=== PATIENT | female | born 1965 | race African-American/Black ===

== ENCOUNTER 2020-03-29 11:22 | Emergency (ER) | payer OTHER, SELFPAY ==
--- NOTE | ~2020-03-29 | XR_ITS ---
EXAMINATION: XR chest 2V DATE: 03/29/2020 12:28 INDICATION: COVID positive. Cough. TECHNIQUE: PA and lateral views of the chest were obtained. COMPARISON: Chest radiograph dated 06/16/2013 FINDINGS: Subtle opacities at the lingula. No pulmonary edema, pleural effusion or pneumothorax. The cardiomedi astinal silhouette is normal. Visualized bones and soft tissues are unremarkable. IMPRESSION: 1. Subtle lingular opacities which could represent atelectasis or pneumonia. Reviewed, dictated and finalized at location A. NSIVIST
[2020-03-29 11:42] VITALS: BP 101/72; PULSE 88; RESP 16; TEMP 36.6; O2SAT 99
--- NOTE | 2020-03-29 12:12 | ED.GENADULT ---
HPI - General Adult General Chief complaint: Upper Respiratory Infection Stated complaint: headache/sinus drainage/chest congestion Source: patient Mode of arrival: ambulatory Limitations: no limitations History of Present Illness HPI narrative: Patient presents for evaluation of respiratory symptoms for the last 2 to 3 weeks. She reports productive cough of clear sputum with mild shortness of breath, sinus congestion, headache, bilateral ear congestion, chills, mild sore throat, and overall not feeling well . She currently resides with her daughter. Her daughter has not been sick as of late. No other recent sick contacts to her knowledge. She does not smoke. She has tried Mucinex DM, Sinutabs, Vicks VapoRub, ibuprofen, some type of nasal spray without significant improvement in her symptoms or after. Related Data Home Medications Medication Instructions Recorded Confirmed brimonidine-timolol [Combigan] drp 03/29/20 dorzolamide drp 03/29/20 Allergies Allergy/AdvReac Type Severity Reaction Status Date / Time No Known Allergies Allergy Verified 03/29/20 11:27 Review of Systems Review of Systems: Narrative: CONSTITUTIONAL: Reports chills. Denies fever or sweating EYES: Denies visual changes, redness, or discharge. ENT: Reports rhinorrhea, sore throat, bilateral ear congestion CARDIOVASCULAR: Denies chest pain, palpitations, or edema. RESPIRATORY: Reports cough and mild shortness of breath GASTROINTESTINAL: Denies abdominal pain. Reports one episode of nausea and vomiting last week but none since that time GENITOURINARY: Denies dysuria or hematuria. SKIN: Denies rash or itching. MUSCULOSKELETAL: Denies back pain, joint pain, or myalgia. NEUROLOGIC: Reports headache. Denies numbness, dizziness, or weakness. PSYCHIATRIC: Denies anxiety or depression. [facility] Past Medical History Medical History (Updated 03/29/20 @ 12:52 by KELBY Daly, NOEMÍ) No significant past medical history Surgical History Surgical History No pertinent past surgical history Family History Family History Mother No significant past medical history Social History Social History (Updated 03/29/20 @ 12:21 by Jarrett L.E. Dahlia, VAMP STRAP IRONER, BC) Smoking status: Never smoker Alcohol intake: current Alcohol use details: Socially Substance use: never Living arrangements: with family Gender identity (if verbalized by the patient): Female Spiritual care concerns: No Exam Narrative: Exam Narrative: GENERAL: Well-appearing, well-nourished, and in no acute distress. HEAD: Normocephalic, atraumatic. EYES: PERRLA and EOMI. ENT: Nares clear, no rhinorrhea or epistaxis. Mucous membranes moist. Oropharynx without tonsillar hypertrophy exudate or other lesions. Left TM pearly nolasco nonbulging. Right ear canal cerumen NECK: Supple. No adenopathy or masses. No carotid bruits or JVD CHEST: Clear to auscultation. No respiratory distress. No wheezes rales or rhonchi HEART: Regular rate and rhythm. No murmur heard. Normal peripheral pulses. ABDOMEN: Soft, nontender, nondistended, normal active bowel sounds. EXTREMITIES: Normal range of motion. No edema. SKIN: Warm, dry, no rash. NEURO: No focal deficits. Alert and oriented x3. PSYCH: Normal mood and affect. Course Course Emergency Course: 55-year-old female that presents with several week history of respiratory symptoms. She does strep, influenza which were both negative. Her Covid was positive. Chest x-ray showed atelectasis versus pneumonia. While this very well could be a viral pneumonia, she may have a superimposed bacterial infection so we will treat her with oral antibiotics. She was advised to quarantine, rest, increase fluid intake. She should seek emergent medical attention for shortness of breath. Saturations were normal here. Patient agreement wi
== END 2020-03-29 13:05 | disposition home or self-care (01) ==
PROVIDERS: Emergency Provider Nurse Practitioner; PCP Emergency Medicine
DX: J12.82 Pneumonia due to coronavirus disease 2019 (principal); B94.8 Sequelae of other specified infectious and parasitic diseases
CPT/HCPCS: 71046; 87081; 87426; 87804; 87880; 99213; C9803; G0463

== ENCOUNTER 2020-04-09 11:07 | Emergency (ER) | payer OTHER, SELFPAY ==
[2020-04-09] VITALS (14 sets, daily range): BP systolic 125–137; BP diastolic 66–105; PULSE 55–78; RESP 12–21; TEMP 36.8; O2SAT 98–100
--- NOTE | ~2020-04-09 | CT_ITS ---
EXAMINATION: CTA chest PE protocol DATE: 04/09/2020 12:36 INDICATION: Shortness of breath. TECHNIQUE: Computed tomography angiography (CTA) of the chest was performed with 100 mL Omnipaque-350 intravenous contrast timed to evaluate the pulmonary arteries. Coronal maximum intensity projection 3D-reconstructions were created by the technologist. Automated exposure control and iterative reconst ruction technique were employed. The dose-length product was 354.45 mGy-cm. COMPARISON: Chest single view 04/09/2020 FINDINGS: There are patchy peripheral groundglass and airspace opacities in all lobes, left worse jacques n right. No pleural effusion. The heart size is normal. No pericardial effusion. There is mild bilate ral hilar lymphadenopathy. There is no pulmonary embolus. There is mild thoracic spondylosis. IMPRESSION: 1. No pulmonary embolus. 2. Diffuse lung disease, consistent with COVID-19 pneumonia. 9 3. Mild bilateral hilar lymphadenopathy, likely reactive. Reviewed, dictated and finalized at location A. BOSS
--- NOTE | ~2020-04-09 | XR_ITS ---
EXAMINATION: XR chest 1V portable DATE: 04/09/2020 11:49 INDICATION: Chest pain. Nausea. TECHNIQUE: A single frontal view of the chest was obtained. COMPARISON: Chest 2 views 03/29/2020 FINDINGS: There are mild patchy airspace opacities in left lung and right lower lung zone. No pleural effusion or pneumothorax. The heart size is normal. IMPRESSION: 1. Worsened patchy airspace opacities in left lung and right lower lung zone, consistent with COVID-1 9 pneumonia. Reviewed, dictated and finalized at location A. SPINNER IMPRESSION: 1. Worsened patchy airspace opacities in left lung and right lower lung zone, c onsistent with COVID-19 pneumonia.
--- NOTE | 2020-04-09 11:17 | ECG_ITS ---
Measurements Intervals [place] Rate: 64 P: 76 WI: 135 QRS: 6 QRSD: 88 T: -89 QT: 378 QTc: 390 Interpretive Statements SINUS RHYTHM WITH SINUS ARRHYTHMIA POSSIBLE LEFT ATRIAL ENLARGEMENT LOW QRS VOLTAGE IN PRECORDIAL LEADS NONSPECIFIC ST & T-WAVE ABNORMALITY- DIFFUSE LEADS BASELINE ARTIFACT- I, III, AVR, AVL, AVF, V1-V6 BORDERLINE ECG Electronically Signed On 04-09-2020 11:34:17 LAY OUT CARPENTER by Kali Chan D.O.
--- NOTE | 2020-04-09 11:27 | ED.CHESTPAIN ---
HPI - Chest Pain General Chief Complaint: Chest Pain Stated Complaint: covid/cp Time Seen by Provider: 04/09/20 11:20 Source: patient Mode of arrival: ambulatory Limitations: no limitations History of Present Illness HPI narrative: Patient is a 55-year-old female complaining of chest tightness, after taking antibiotics which caused her to have nausea vomiting earlier today. Patient states that she started to have nausea and vomiting after taking the antibiotic she has been on for the past 2 weeks, started to feel anxious causing the chest tightness. Patient states that she usually takes food with her antibiotics because it makes her sick. After the nausea vomiting subsided, states that she started to calm down and her chest tightness resolved. Patient denies any chest pain, shortness of breath, abdominal pain, diarrhea, fever or chills. Related Data Home Medications Medication Instructions Recorded Confirmed brimonidine-timolol [Combigan] 1 drp EACH EYE BID 03/29/20 03/29/20 dorzolamide 1 drp EACH EYE TID 03/29/20 03/29/20 Allergies Allergy/AdvReac Type Severity Reaction Status Date / Time No Known Allergies Allergy Verified 04/09/20 11:34 Review of Systems Review of Systems: All systems reviewed & are unremarkable except as noted in HPI and below Constitutional: Constitutional: Denies body ache(s), Denies chills, Denies excessive sweating, Denies fatigue, Denies fever(s), Denies headache(s), Denies lethargy, Denies malaise, Denies weakness and Denies weight loss Eyes: Eyes: Denies blurry vision, Denies change in vision and Denies loss of vision ENT: Denies dizziness, Denies ear discharge, Denies headache(s), Denies lip swelling, Denies epistaxis, Denies nasal congestion, Denies neck pain, Denies throat swelling and Denies tongue swelling Cardiovascular: Cardiovascular: Denies diaphoresis, Denies rapid heart rate, Denies edema, Denies irregular heart rhythm, Denies lightheadedness, Denies palpitations, Denies dyspnea and Denies dyspnea on exertion Respiratory: Respiratory: Denies chest congestion, Denies cough, Denies hemoptysis, Denies dyspnea and Denies dyspnea on exertion Gastrointestinal: Gastrointestinal: Denies abdominal pain, Denies melena, Denies hematochezia, Denies diarrhea and Denies hematemesis Musculoskeletal: Musculoskeletal: Denies abnormal gait, Denies deformity, Denies joint swelling, Denies limited range of motion, Denies neck pain and Denies numbness Neurologic: Denies Abnormal speech present, Denies abnormal gait, Denies confusion, Denies dizziness, Denies headache(s), Denies focal weakness, Denies loss of vision, Denies numbness, Denies Other visual disturbances, Denies Sensory deficit (Neuro) and Denies weakness Psychiatric: Psychiatric: Denies confusion, Denies depression, Denies auditory hallucinations, Denies homicidal ideation and Denies suicidal ideation Endocrine: Endocrine: Denies cold intolerance, Denies excessive sweating, Denies fatigue, Denies heat intolerance and Denies palpitations Hematologic/Lymphatic: Hematologic/Lymphatic: Denies easy bleeding and Denies easy bruising Allergic/Immunologic: Allergic/Immunologic: Denies lip swelling, Denies throat swelling and Denies tongue swelling PMFSH Past Medical History Medical History No significant past medical history Surgical History Surgical History No pertinent past surgical history Family History Family History Mother No significant past medical history Social History Social History Smoking status: Never smoker Alcohol intake: current Substance use: never Gender identity (if verbalized by the patient): Female Spiritual care concerns: No Exam Const: General: cooperative, healthy appearing, comfo
[2020-04-09 11:48] LABS: Basophils Percent Auto 0.3 % (0.2-1.2); Eosinophils Absolute Auto 0.1 K/mm3 (0-0.3); Eosinophils Percent Auto 1.2 % (0-4.4); Hematocrit 43.5 % (37.0-47.0); Hemoglobin 14.9 g/dL (12.0-15.0); Immature Granulocyte Absolute 0.08 K/mm3 (0.00-0.031); Immature Granulocyte Percent A 0.8 % (0-0.5); Lymphocytes Absolute Auto 1.72 K/mm3 (0.9-3.2); Lymphocytes Percent Auto 16.8 % (18.3-44.2); Mean Corpuscular HGB Conc 34.3 g/dl (32-36); Mean Corpuscular Hemoglobin 32.5 pg (26-34); Mean Corpuscular Volume 94.8 fl (80-100); Mean Platelet Volume 10.5 fl (7.4-10.4); Monocytes Absolute Auto 0.9 K/mm3 (0.1-0.6); Monocytes Percent Auto 8.3 % (2.6-8.5); Neutrophils Absolute Auto 7.5 K/mm3 (1.3-6.7); Neutrophils Percent Auto 72.6 % (45.5-73.1); Platelet Count Result 432 k/mm3 (150-375); Red Blood Count 4.59 M/mm3 (4.2-5.4); White Blood Count 10.3 K/mm3 (4.5-10.0)
[2020-04-09 11:57] LABS: INR 0.9; Prothrombin Time 12.5 Seconds (11.1-14.7)
[2020-04-09 11:58] LABS: Partial Thromboplastin Time 23.5 SECONDS (22.3-36.8)
[2020-04-09 12:00] LABS: Anion Gap 6 mmol/L (8-16); Blood Urea Nitrogen 11 mg/dL (7-17); Calcium 8.7 mg/dL (8.4-10.2); Carbon Dioxide 28 mmol/L (22-30); Chloride 111 mmol/L (98-107); D Dimer 1.05 ug/mL (<0.48); Estimated CRCL calculation 80 ml/min; Estimated Glomerular Filt Rate > 60; Glucose 107 mg/dL (65-105); Potassium 3.6 mmol/L (3.4-5.0); Sodium 145 mmol/L (137-145)
[2020-04-09 12:11] LABS: Troponin I < 0.012 ng/mL (0.000-0.034)
[2020-04-09 14:43] LABS: Troponin I < 0.012 ng/mL (0.000-0.034)
== END 2020-04-09 15:20 | disposition home or self-care (01) ==
PROVIDERS: Emergency Medicine; Emergency Provider Emergency Medicine; PCP Emergency Medicine
DX: U07.1 COVID-19 (principal); R07.89 Other chest pain; R94.31 Abnormal electrocardiogram [ECG] [EKG]; R91.8 Other nonspecific abnormal finding of lung field
CPT/HCPCS: 36415; 71045; 71275; 80048; 84484; 85025; 85380; 85610; 85730; 93005; 99284; Q9967

== ENCOUNTER → 2020-04-30 08:13 | Outpatient (CLI) | payer OTHER, SELFPAY ==
--- NOTE | ~2020-04-30 | XR_ITS ---
EXAMINATION: XR chest 2V EXAM DATE: 04/30/2020 08:39 INDICATION: J12.9 Viral Pneumonia; COVID pos late 02/2020 . TECHNIQUE: Frontal and lateral projections of the chest obtained and reviewed. Comparison is made to prior examination from 04/09/2020. FINDINGS: The lungs are clear. There are no pleural effusions. The cardiomediastinal silhouette is within normal limits. There is no pneumothorax suspected. The bones and soft tissues are unremarkab le. IMPRESSION: Resolution of previously seen acute airspace disease. Reviewed, dictated and finalized at location A. ST WORKER
== END ==
PROVIDERS: PCP Emergency Medicine; Visit Provider Emergency Medicine
DX: J12.9 Viral pneumonia, unspecified (principal)
CPT/HCPCS: 71046

== ENCOUNTER 2020-05-12 08:01 | Outpatient (CLI) | payer OTHER, SELFPAY ==
--- NOTE | ~2020-05-12 | MM_ITS ---
EXAMINATION: MM screening [facility] BI w sendy HISTORY: Screening TECHNIQUE: Craniocaudal and mediolateral oblique 3-D tomosynthesis images were obtained and synthetic 2-D images were generated. CAD analysis was submitted and interpreted. COMPARISON: Comparison to multiple prior studies sequentially, with oldest reviewed study dated 01/28. BREAST PARENCHYMAL COMPOSITION: There are scattered areas of fibroglandular density. FINDINGS: There is no evidence of suspicious mass, calcification, or architectural distortion to sugg est malignancy in either breast. There has been no suspicious interval change. IMPRESSION: 1. No mammographic evidence of malignancy. 2. Recommend routine screening mammography in one year. BI-RADS Category 1: Negative Reviewed, dictated and finalized at location A.
== END 2020-05-12 08:02 | disposition home or self-care (01) ==
LOC: ANHIMG 08:03
PROVIDERS: PCP Emergency Medicine; Visit Provider Obstetrics & Gynecology
DX: Z12.31 Encounter for screening mammogram for malignant neoplasm of breast (principal)
CPT/HCPCS: 77063; 77067

== ENCOUNTER → 2021-07-23 18:36 | Outpatient (CLI) | payer OTHER, SELFPAY ==
--- NOTE | ~2021-07-23 | XR_ITS ---
EXAMINATION: XR chest 2V 07/23/2021 18:46 INDICATION: Cough PROCEDURE: 2 view chest COMPARISON: Comparison to multiple prior studies sequentially, with oldest reviewed study dated 06/16. FINDINGS: The lungs are clear. The cardiomediastinal silhouette is within normal limits. There are no pleural effusions. There is no pneumothorax suspected. IMPRESSION: 1: NO ACUTE CARDIOPULMONARY DISEASE. Reviewed, dictated and finalized at location A.
== END ==
PROVIDERS: PCP Internal Medicine; Visit Provider Internal Medicine
DX: R05.9 Cough, unspecified (principal)
CPT/HCPCS: 71046

== ENCOUNTER 2021-08-16 07:34 | Outpatient (CLI) | payer OTHER, SELFPAY ==
--- NOTE | ~2021-08-16 | MM_ITS ---
EXAMINATION: MM screening [facility] BI w sendy HISTORY: Screening mammogram TECHNIQUE: Craniocaudal and mediolateral oblique 3-D tomosynthesis images were obtained and synthetic 2-D images were generated. CAD analysis was submitted and interpreted. COMPARISON: 05/12/2020, 03/20/2018, 03/14/2017 bilateral screening mammogram examinations BREAST PARENCHYMAL COMPOSITION: There are scattered areas of fibroglandular density. FINDINGS: There is no evidence of suspicious mass, calcification, or architectural distortion to sugg est malignancy in either breast. There has been no suspicious interval change. IMPRESSION: 1. No mammographic evidence of malignancy. 2. Recommend routine screening mammography in one year. BI-RADS Category 1: Negative Reviewed, dictated and finalized at location A.
--- NOTE | ~2021-08-16 | DEXA_ITS ---
Bone Density Report Name: MANAV WALTERS Age: 56 Sex: Female Ethnicity: White Date of : 1965 Indication: osteopenia; height loss; post menopausal Referring Provider: MIGUEL MEDINA Study: Bone densitometry was performed. Exam Date: August 16, 2021 Accession number: [id number] Bone Density: Region BMD T-score Z-score Classification AP Spine(L1-L4) 0.846 -1.8 -0.7 Osteopenia Femoral Neck (Left) 0.717 -1.2 -0.1 Osteopenia Total Hip (Left) 0.750 -1.6 -0.8 Osteopenia Femoral Neck (Right) 0.725 -1.1 0.0 Osteopenia Total Hip (Right) 0.757 -1.5 -0.8 Osteopenia Total Hip Mean 0.753 -1.6 -0.8 Osteopenia World Health Organization criteria for BMD impression classify patients as: Normal (T-score at or above -1.0), Osteopenia (T-score between -1.0 and -2.5), or Osteoporosis (T-score at or below -2.5). 10-year Fracture Risk(1): Major Osteoporotic Fracture 2.8% Hip Fracture 0.2% Reported Risk Factors: [place] (Black), Neck BMD=0.717, BMI=28.2 (1) FRAX(R) Version 3.08. Fracture probability calculated for an untreated patient. Fracture probability may be lower if the patient has received treatment. Previous Exams: Region Exam Age BMD T-score BMD Change BMD Change Date g/cm2 vs Baseline vs Previous AP Spine (L1-L4) 08/16/2021 56 0.846 -1.8 -0.039 (-4.4%) -0.039 (-4.4%) 03/10/2016 51 0.885 -1.5 Total Hip(Left) 08/16/2021 56 0.750 -1.6 -0.040 (-5.0%) -0.040 (-5.0%) 03/10/2016 51 0.789 -1.3 Total Hip(Right) 08/16/2021 56 0.757 -1.5 -0.031 (-4.0%) -0.031 (-4.0%) 03/10/2016 51 0.788 -1.3 *Denotes significance at 95% confidence level, LSC for AP Spine = 0.022 g/cm2, LSC for Total Hip = 0.027 g/cm2 Clinical Information Provided by Patient: Patient maximum height was 68 Menopause Age: 49 Drinks caffeinated beverages Onset of menses at age 16 Number of children 1 Impression: The patient has low bone mass, based on the Total Spine T-score. The patient has an estimated ten-year risk of hip fracture of 0.2% and an estimated ten-year risk of major fracture of 2.8%, based on the WHO FRAX algorithm. The BMD for the AP Spine (L1-L4) decreased, changing by -4.4% since the last DXA exam. The BMD for the Total Hip(Left) decreased, changing by -5.0% since the last DXA exam. The BMD for the Total Hip(Right) decreased, changing by -4.0% since the last DXA exam. Discussion: BONE DENSITY IS LOW AT ONE OR MORE SKELETAL SITE
== END 2021-08-16 07:35 | disposition home or self-care (01) ==
PROVIDERS: PCP Internal Medicine; Visit Provider Obstetrics & Gynecology
DX: Z12.31 Encounter for screening mammogram for malignant neoplasm of breast (principal); Z13.820 Encounter for screening for osteoporosis; M85.88 Other specified disorders of bone density and structure, other site; M85.852 Other specified disorders of bone density and structure, left thigh; M85.851 Other specified disorders of bone density and structure, right thigh
CPT/HCPCS: 77063; 77067; 77080

== ENCOUNTER 2023-05-15 14:35 | Outpatient (CLI) | payer OTHER, SELFPAY ==
--- NOTE | ~2023-05-15 | MM_ITS ---
EXAMINATION: MM screening [facility] BI w sendy HISTORY: Screening TECHNIQUE: Craniocaudal and mediolateral oblique 3-D tomosynthesis images were obtained and synthetic 2-D images were generated. CAD analysis was submitted and interpreted. COMPARISON: Comparison to multiple prior studies sequentially, with oldest reviewed study dated 01/28. BREAST PARENCHYMAL COMPOSITION: Not dense: There are scattered areas of fibroglandular density. FINDINGS: There is no evidence of suspicious mass, calcification, or architectural distortion to sugg est malignancy in either breast. There has been no suspicious interval change. IMPRESSION: 1. No mammographic evidence of malignancy. 2. Recommend routine screening mammography in one year. BI-RADS Category 1: Negative Reviewed, dictated and finalized at location A.
== END 2023-05-15 14:36 | disposition home or self-care (01) ==
LOC: ANHIMG 14:38
PROVIDERS: PCP Internal Medicine; Visit Provider Nurse Practitioner
DX: Z12.31 Encounter for screening mammogram for malignant neoplasm of breast (principal)
CPT/HCPCS: 77063; 77067

== ENCOUNTER 2023-12-08 13:30 | Outpatient (RCR) | payer OTHER, SELFPAY ==
--- NOTE | 2023-11-30 14:48 | STOPEVAL1 ---
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 She reports that her employment involves speaking all day and this has made it difficult for her to return to work. She has been placed on blood thinners and cholesterol medicine and may be facing a surgical procedures. Patient stated that she still mispronounces words at times but improving; when asked about thinking of words, she knows that this has improved. She stated that initially, she could not even remember her work computer user name and password and her co-workers called an ambulance and sent her to the hospital. Patient denies weakness in rest of body. Reported Pain Level Pain Score 0: Self Report Assessment ST Clinical Summary SPEECH/LANGUAGE EVALUATION Patient suffered a CVA on 11/25 which caused her to have difficulty with her word-finding and speech skills. She reported that initially, she had great difficulty saying words clearly; some dysfluencies noted at the conversational level. 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 ) Today portions of the [facility] Aphasia Evaluation were presented and patient was found to have receptive skills within normal limit. Expressively, the patient was able to imitate words with exact speech sound precision however when patient spoke at the conversational level she was found to have intermittent, random speech sound hesitations and distortions which she states are new following this CVA. Patient reported she never demonstrated these speech issues prior to thie CVA, that her speech was always precise and fluent. Patient will be seen for direct Speech Therapy sessions 1-2 times weekly for 2-4 weeks for a total of four visits, depending on when she is able to have transportation. Speech Therapy will focus on higher-level conversational tasks to address strategies to improve speech fluency/sound productions at the conversational level. Patient voices understanding and is in agreement with results and plan. Plan of Care Interventions Treatment of Speech ST Services Indicated Yes Treatment Frequency and 1-2x/week x 4 visits. Duration These treatments will address the objective and functional deficits as defined above. The patient will be advanced safely and appropriately in order for the patient to progress towards his/her prior level of function. Additional exercises will be introduced and as well as a comprehensive home exercise program upon discharge, if needed, ?to ensure carryover of functional gains achieved in the clinic. This treatment plan has been reviewed and agreement upon by the patient.
--- NOTE | 2023-12-04 09:27 | OPREHPOC ---
Outpatient Therapy Plan of Care This is a Multidisciplinary Plan of Care that may contain components documented by all disciplines (PT, OT, and ST.) ST Problem 1 ST Problem #[address] Goal 1 Goal / Goal Update 1. Patient will voice and demonstrate anatomy and physiology related to communication impairment, treatment plan, home exercise program, compensatory programs, and risks and benefits related to direct Speech Therapy tasks. Target Visit [address] Problem #[address] Goal [address] Goal 1 Goal / Goal Update 1. Patient will participate in structured tasks at the conversational level using strategies to improve speech sound precision/fluency to 90% acc. Target Visit 4
--- NOTE | 2024-01-04 13:39 | PCSTNOTE ---
Therapist spoke with patient concerning her medical status and need for any continued Speech Therapy. Patient reported she feels her speech and language are improving and she is slowly easing herself back into work. She stated she does not feel she requires any additional Speech Therapy.
--- NOTE | 2024-01-04 13:52 | STOPDC ---
Assessment and note entered by Kierra Jackson REHAB OFFICE COORDINATOR Evaluation Information Assessment Status Discharge - Pt Not Presen Assessment ST Clinical Summary Patient was seen for an initial Speech and Language Evaluation after suffering a CVA. She exhibited good conversational skills in general but indicated that sometimes initially, she had great difficulty saying words clearly; some dysfluencies noted at the conversational level. 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 Expressively, the patient was able to imitate words with exact speech sound precision however when patient spoke at the conversational level she was found to have intermittent, random speech sound hesitations and distortions which she states are new following this CVA. Patient reported she never demonstrated these speech issues prior to thie CVA, that her speech was always precise and fluent. Direct therapy was attempted, with recommendations for sessions 1-2 times weekly for 2-4 weeks for a total of four visits, depending on when she is able to have transportation. Patient was seen for only one additional visit and patient voiced that she felt her speech productions had improved. She requested the additional visits be held until after a CT scan and session with neurologist. She was contacted a week ago and did not respond but did respond when therapist called today. She stated she has seen her neurologist and had the CT scan; she reported they were essentially within normal limits and she feels her conversational speech has improved and she no longer requires any additional Speech Therapy at this time. Patient is discharged a this time with goals achieved. Plan of Care ST Services Indicated No
== END 2024-01-04 14:23 | disposition home or self-care (01) ==
LOC: ANHST 13:30
PROVIDERS: PCP Internal Medicine; Visit Provider Internal Medicine
DX: I69.328 Other speech and language deficits following cerebral infarction (principal)
CPT/HCPCS: 92507; 92523

== ENCOUNTER 2024-04-24 16:46 | Emergency (ER) | payer OTHER, SELFPAY ==
--- NOTE | ~2024-04-24 | XR_ITS ---
CHEST RADIOGRAPH, PA AND LATERAL CLINICAL HISTORY: COVID+, cough, chest congestion . COMPARISON: 07/23/2021 TECHNIQUE: PA and lateral views of the chest. FINDINGS The cardiomediastinal silhouette is unremarkable. The lungs are clear. Visualized osseous structures and soft tissues are unremarkable. IMPRESSION: No focal infiltrate or effusion. Reviewed, dictated and finalized at location A. DINGS AND GROUNDS SUPERINTENDENT
[2024-04-24 16:58] VITALS: BP 102/72; PULSE 112; RESP 16; TEMP 37.1; O2SAT 99
--- NOTE | 2024-04-24 17:03 | ED.URI ---
HPI - URI/Sore Throat General Chief Complaint: Upper Respiratory Infection Stated Complaint: CHEST CONGESTION/HEADACHE/SCRATCHY THROAT/SNEEZING Time Seen by Provider: 04/24/24 17:03 Source: patient and RN notes reviewed Mode of arrival: ambulatory Limitations: no limitations History of Present Illness HPI Narrative: 59 year old female presents with concern for cough, chest congestion, headache, sore throat, sneezing. She reports 3 days history of symptoms. She reports some chills. She denies fever. MD elicited complaint: cough and sore throat Related Data Home Medications ?Medication ?Instructions ?Recorded ?Confirmed ?Last Taken ?Type brimonidine 0.2 %-timolol 0.5 % 1 drp EACH EYE BID 03/29/20 03/29/20 Unknown History eye drops (Combigan) dorzolamide 2 % eye drops 1 drp EACH EYE TID 03/29/20 03/29/20 Unknown History Allergies Allergy/AdvReac Type Severity Reaction Status Date / Time No Known Allergies Allergy Verified 04/09/20 11:34 Review of Systems Review of Systems: CONSTITUTIONAL: Reports malaise, chills. Denies sweats, or fever. EYES: Denies visual changes, redness, or discharge. ENT: Reports rhinorrhea, congestion, and sore throat. CARDIOVASCULAR: Denies chest pain, palpitations, or edema. RESPIRATORY: Reports cough and chest congestion. Denies dyspnea. GASTROINTESTINAL: Denies abdominal pain, nausea, vomiting, diarrhea SKIN: Denies rash or itching. MUSCULOSKELETAL: Reports myalgia. NEUROLOGIC: Reports headache. All systems reviewed & are unremarkable except as noted in HPI and below PMFSH Past Medical History Medical History No significant past medical history Surgical History Surgical History No pertinent past surgical history Family History Family History Mother No significant past medical history Social History Social History Smoking status: Never smoker Alcohol intake: current Alcohol use details: Socially Substance use: never Living arrangements: with family Gender identity (if verbalized by the patient): Female Spiritual care concerns: No Comments At time of signature, agree with nursing past medical, surgical, social and family history. There is no relevant family history pertinent to the presenting complaint Exam Narrative: GENERAL: Well-appearing, well-nourished, and in no acute distress. HEAD: Normocephalic EYES: PERRLA, conjunctivae clear ENT: Nares clear. Mucous membranes moist. TM pearly nolasco with dull light reflex bilaterally; no tragal tenderness. Oropharynx not erythematous without lesions. Tonsils not enlarged and without exudate, no drooling, no hoarseness, no trismus, uvula midline. NECK: Supple. No lymphadenopathy CHEST: Clear to auscultation, breath sounds equal. No wheezing, rhonchi, rales, or stridor. No respiratory distress, speaks in full sentences. HEART: Regular rate and rhythm. No murmur heard. SKIN: Warm, dry, no rash. NEURO: Alert and oriented x3. PSYCH: Normal mood and affect Course Course Emergency Course: Patient is aware of diagnosis, understands and agrees to treatment plan. Anticipatory guidance given. Patient agrees to follow-up as directed and is aware of reasons to seek care at the emergency department. Portions of this record may have been created with voice recognition software Level of Care: Express Care Visit Vital Signs Vital signs: Vital Signs Temperature 98.8 F 04/24/24 16:58 Pulse Rate 112 H 04/24/24 16:58 Respiratory Rate 16 04/24/24 16:58 Blood Pressure 102/72 04/24/24 16:58 Pulse Oximetry 99 04/24/24 16:58 Temperature 98.8 F 04/24/24 16:58 Pulse Rate 112 H 04/24/24 16:58 Respiratory Rate 16 04/24/24 16:58 Blood Pressure 102/72 04/24/24 16:58 Pulse Oximetry 99 04/24/24 16:58 Reviewed. MDM - URI/Sore Throat MDM Narrative Medical decision making narrative: Differential diagnosis considered: Morgan virus, strep pharyngitis, allergic rhinitis, upper respiratory tract infection, sinusitis, rhinosinusitis, nasopharyngitis. viral pharyngitis, otitis media, otitis externa, pneumonia, bronchitis, viral cough syndrome, viral syndrome, and influenza. Exam findings show no acute concerns or changes; patient is non-toxic appearing and is in no distress. Patient is appropriate for outpatient treatment and follow-up. Lab Data Attestation: I reviewed the patient's lab results. Imaging Data My impression: Images reviewed, interpreted by radiologist, agree, see report. Radiologist's impression: CHEST RADIOGRAPH, PA AND LATERAL CLINICAL HISTORY: COVID+, cough, chest congestion . COMPARISON: 07/23/2021 TECHNIQUE: PA and lateral views of the chest. FINDINGS The cardiomediastinal silhouette is unremarkable. The lungs are clear. Visualized osseous structures and soft tissues are unremarkable. IMPRESSION: No focal infiltrate or effusion. Critical Care Time Critical Care Time Critical Care Time: No Discharge Plan Discharge Clinical Impression: Acute bronchitis due to COVID-19 virus Patient Disposition: Home, Self-Care Condition: Stable Instructions: How to Recover from COVID-19 at Home (ED) Additional Instructions: Your x-ray is normal Viral illness may last between 7-21 days; antibiotics do not cure viral illness and are NOT recommended at this time. Recommend antihistamine such as Benadryl at night time and Zyrtec or Janet during the day Cough syrup may cause drowsiness; avoid driving or take it at night time. Also, recommend symptomatic treatment includes: rest, fluids, and increase humidity of the air at home. Recommend Acetaminophen as directed on the bottle to reduce fever, pain, headache. Avoid smoking/second-hand smoke. Please schedule a follow-up visit with your personal physician for further evaluation and treatment within 3-5days. If your symptoms persist, change or worsen significantly before you can contact your personal physician then please, without delay, go to the emergency department for further evaluation. Patient Language: Slovenian Prescriptions: New promethazine-DM 6.25-15 mg/5 mL syrup 5 ml PO Q4-6H PRN (Reason: cough) Qty: 120 0RF methylprednisolone [Medrol (Aaron)] 4 mg tablets,dose pack See Rx Instructions .ROUTE .COMPLEX Qty: 21 0RF Rx Instructions: orally per package directions No Action dorzolamide 2 % drops 1 drp EACH EYE TID Combigan 0.2-0.5 % drops 1 drp EACH EYE BID azithromycin 250 mg tablet See Rx Instructions .ROUTE .COMPLEX Qty: 6 0RF Rx Instructions: take 500 mg today (day 1), then 250 mg for 4 days (days 2-5) doxycycline hyclate 100 mg capsule 100 mg PO DAILY Qty: 14 0RF Follow-up/Referrals: Rosa Guevara MD [Primary Care Provider] - Stand Alone Forms: Work/School Release IP Time of Disposition: 17:20
[2024-04-24 17:07] LABS: EDCOVIDSCREEN Positive (Negative); EDINFLUASCREEN Negative (Negative); EDINFLUBSCREEN Negative (Negative); EDSTREPNEGPOS1 Negative (Negative)
== END 2024-04-24 17:22 | disposition home or self-care (01) ==
PROVIDERS: Emergency Provider Nurse Practitioner; PCP Obstetrics & Gynecology Gynecology
DX: U07.1 COVID-19 (principal); J20.8 Acute bronchitis due to other specified organisms
CPT/HCPCS: 71046; 87081; 87426; 87804; 87880; 99213; G0463

== ENCOUNTER 2024-05-16 08:21 | Outpatient (CLI) | payer OTHER, SELFPAY ==
--- NOTE | ~2024-05-16 | MM_ITS ---
EXAMINATION: MM screening kelly BI w sendy HISTORY: Screening TECHNIQUE: Craniocaudal and mediolateral oblique 3-D tomosynthesis images were obtained and synthetic 2-D images were generated. CAD analysis was submitted and interpreted. COMPARISON: Comparison to multiple prior studies sequentially, with oldest reviewed study dated 03/10. BREAST PARENCHYMAL COMPOSITION: Not dense: There are scattered areas of fibroglandular density. FINDINGS: There is no evidence of suspicious mass, calcification, or architectural distortion to sugg est malignancy in either breast. There has been no suspicious interval change. IMPRESSION: 1. No mammographic evidence of malignancy. 2. Recommend routine screening mammography in one year. BI-RADS Category 1: Negative Reviewed, dictated and finalized at location []
--- OUTSIDE RECORDS SUMMARY | 2024-05-16 08:26 | XMS_ITS | Clinical Summary ---
Author Organization [facility] Address [address] [place] [address] Phone Care Team Providers Care Curtain Worker Name Role Phone Rosa Guevara MD Unavailable [phone] Porfirio Chiang Primary Care Provider [phone] Shaka Davalos DO Unavailable [phone] Allergies No known active allergies Medications polyethylene glycol (MIRALAX) Powder Use entire 255g bottle with 64oz of clear liquid as directed for colonoscopy prep. 255 g 0 6 Active Travoprost, DALI Free, (TRAVATAN Z) 0.004 % Solution Place 1 Drop in affected eye(s) nightly. Active Brimonidine Tartrate-Timolo l (COMBIGAN) 0.2-0.5 % Solution Place 1 Drop in affected eye(s) 2 times daily. Active dorzolamide (TRUSOPT) 2 % Solution Place 1 Drop in affected eye(s) 3 times daily. Active Norethindrone-E th Estradiol (JINTELI PO) Take 1 mg by mouth daily. 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 Gender Identity Not on file Sexual Orientation Not on file Plan of Treatment Health Maintenance Due Date Last Done Comments Hepatitis C Virus (HCV) Screening 1965 TdaP Immunization 1965 Hepatitis B Immunization (1 of 3 - 19+ 3-dose series) 02/26/1984 Pap Smear 1986 Cervical Cancer Screening (CCS) 1995 HPV/Cotest 1995 Cologuard 2015 Immunochemical Fecal Occult Blood 2015 Mammogram 2015 Pneumococcal Immunization (5 0+ years) (1 of 1 - PCV) 2015 Zoster Immunization (1 of 2) 2015 Influenza Immunization (#1) 2023 SARS-COV-2 Immunization ( season) 2023 10/12/2020, 09/21/2020 Colonoscopy 04/21/2026 04/21/2016 Colorectal Cancer Screening 04/21/2026 Respiratory Syncytial Virus (RSV) Immunization (Adult) (1 - 1-dose 75+ series) 02/26/2040 04/21/2016 Meningococcal Immunization (ACWY) Aged Out No longer eligible b ased on patient's age to complete this topic Pneumococcal Immunization Combined Aged Out No longer eligible b ased on patient's age to complete this topic Rotavirus Immunization Aged Out No lo nger eligible based on patient's age to complete this topic Procedures Procedure Name Priority Date/Time Associated Diagnosis Comments COLONOSCOPY Routine 04/21/2016 from Last 3 Months or Most Recently Relevant to Health Maintenance Results * COLONOSCOPY (04/21/2016) Albert Brambila MD PROCEDURE/MINOR SURGICAL OR DERABLES Final Result from Last 3 Months or Most Recently Relevant to Health Maintenance Care Teams Curtain Worker Relationship Specialty Start Date End Date Андрей Porfirio [address] [place] [address] PCP - General Family Medicine 01/19/16 Rosa Guevara MD [address] [place] [id number] Obstetrics & Gynecology 01/19/16 Shaka Davalos DO [address] [place] [address] Gastroenterology 04/27/16
== END 2024-05-16 08:22 | disposition home or self-care (01) ==
PROVIDERS: PCP Obstetrics & Gynecology Gynecology; Visit Provider Advanced Practice Midwife
DX: Z12.31 Encounter for screening mammogram for malignant neoplasm of breast (principal)
CPT/HCPCS: 77063; 77067

== ENCOUNTER 2024-12-18 08:03 | Outpatient (CLI) | payer OTHER, SELFPAY ==
--- NOTE | ~2024-12-18 | DEXA_ITS ---
Bone Density Report Name: MANAV WALTERS Age: 59 Sex: Female Ethnicity: White Date of : 1965 Indication: osteopenia; height loss; Referring Provider: ANNALISA HOUSTON Study: Bone densitometry was performed. Exam Date: December 18, 2024 Accession number: [id number] Bone Density: Region BMD T-score Z-score Classification AP Spine(L1-L4) 0.774 -2.5 -1.1 Osteoporosis Femoral Neck (Left) 0.690 -1.4 -0.2 Osteopenia Total Hip (Left) 0.702 -2.0 -1.0 Osteopenia Femoral Neck (Right) 0.645 -1.8 -0.6 Osteopenia Total Hip (Right) 0.675 -2.2 -1.3 Osteopenia Total Hip Mean 0.688 -2.1 -1.2 Osteopenia World Health Organization criteria for BMD impression classify patients as: Normal (T-score at or above -1.0), Osteopenia (T-score between -1.0 and -2.5), or Osteoporosis (T-score at or below -2.5). 10-year Fracture Risk: FRAX not reported because: Some T-score for Spine Total or Hip Total or Femoral Neck at or below -2.5 Previous Exams: Region Exam Age BMD T-score BMD Change BMD Change Date g/cm2 vs Baseline vs Previous AP Spine (L1-L4) 12/18/2024 59 0.774 -2.5 -0.111 (-12.5% -0.072 (-8.5%) 08/16/2021 56 0.846 -1.8 -0.039 (-4.4%) -0.039 (-4.4%) 03/10/2016 51 0.885 -1.5 Total Hip(Left) 12/18/2024 59 0.702 -2.0 -0.087 (-11.0% -0.047 (-6.3%) 08/16/2021 56 0.750 -1.6 -0.040 (-5.0%) -0.040 (-5.0%) 03/10/2016 51 0.789 -1.3 Total Hip(Right) 12/18/2024 59 0.675 -2.2 -0.113 (-14.4% -0.082 (-10.8% 08/16/2021 56 0.757 -1.5 -0.031 (-4.0%) -0.031 (-4.0%) 03/10/2016 51 0.788 -1.3 *Denotes significance at 95% confidence level, LSC for AP Spine = 0.022 g/cm2, LSC for Total Hip = 0.027 g/cm2 Clinical Information Provided by Patient: Has used the following medications: HRT (i.e. estrogen/hormone therapy) Patient maximum height was 68.0 Menopause Age: 49 No regular weight bearing exercise Onset of menses at age 16 Number of children 1 Missed period for more than 6 months in a row Impression: The patient has osteoporosis, based on the Total Spine T-score. The BMD for the AP Spine (L1-L4) decreased, changing by -8.5% since the last DXA exam. The BMD for the Total Hip(Left) decreased, changing by -6.3% since the last DXA exam. The BMD for the Total Hip(Right) decreased, changing by -10.8% since the last DXA exam. Discussion: INCREASED RISK OF FRACTURE. BONE DENSITY IS UNDESIRABLY LOW AT ONE OR MORE SKELETAL SITES, CONSISTENT WITH POSTMENOPAUSAL OSTEOPOROSIS. This patient's lowest T-score meets the World Health Organization's (WHO) criteria for osteoporosis at one or more sites (T-score -2.5 or below). In untreated patients, the risk of osteoporotic fracture increases approximately two-fold for each 1.0 SD decrease in T-score. Low bone density is not the only risk factor for fracture; also consider factors such as patient's age, frailty or poor health, risk of falling, risk of injury, previous osteoporotic fracture, family history of osteoporosis, cigarette smoking, low body weight, etc. Not everyone with low bone mineral density has osteoporosis; osteomalacia and other metabolic bone disorders should also be considered. Patients who have osteoporosis should be evaluated for specific diseases and conditions (secondary causes) that may cause or contribute to bone loss. The [place] Association of Clinical Endocrinologists (AACE) and National Osteoporosis Foundation (NOF) recommend pharmacologic intervention for all postmenopausal women whose T-score is in this range. The patient should follow a healthful lifestyle (good nutrition with adequate calcium and vitamin D, and appropriate weight-bearing exercise). Follow-Up: Consider a repeat BMD and Vertebral Fracture Assessment (VFA) exam in 2 years or sooner if medically necessary, to reassess this patient's status. Reported by: ASTRID on 12/18/2024 8:42:00 AM. Reviewed, dictated and finalized at location A.
--- OUTSIDE RECORDS SUMMARY | 2024-12-18 08:14 | XMS_ITS | Clinical Summary ---
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 Gender Identity Not on file Sexual Orientation Not on file Plan of Treatment Health Maintenance Due Date Last Done Comments Hepatitis C Virus (HCV) Screening 1965 TdaP Immunization 1965 Hepatitis B Immunization (1 of 3 - 19+ 3-dose series) 02/26/1984 Pap Smear 1986 Cervical Cancer Screening (CCS) 1995 HPV/Cotest 1995 Cologuard 2010 Immunochemical Fecal Occult Blood 2010 Pneumococcal Immunization (5 0+ years) (1 of 1 - PCV) 2015 Zoster Immunization (1 of 2) 2015 Influenza Immunization (#1) 2024 SARS-COV-2 Immunization ( - season) 2024 10/12/2020, 09/21/2020 Colonoscopy 04/21/2026 04/21/2016 Colorectal Cancer Screening 04/21/2026 Respiratory Syncytial Virus (RSV) Immunization (Adult) (1 - 1-dose 75+ series) 02/26/2040 Human Papillomavirus (HPV) Immunization Aged Out No longer eligible b ased on patient's age to complete this topic Meningococcal Immunization (ACWY) Aged Out No longer [...] Recently Relevant to Health Maintenance Care Teams Signal Manager Relationship Specialty Start Date End Date АндрейPorfirio [address] [place] [address] PCP - General Family Medicine 01/19/16 Rosa Guevara MD [address] [place] [id number] Obstetrics & Gynecology 01/19/16 Shaka Davalos DO [address] [place] [address] Gastroenterology 04/27/16
== END 2024-12-18 08:04 | disposition home or self-care (01) ==
LOC: ANHFOHIMG 08:04
PROVIDERS: Visit Provider Advanced Practice Midwife
DX: Z78.0 Asymptomatic menopausal state (principal); M81.0 Age-related osteoporosis without current pathological fracture; M85.852 Other specified disorders of bone density and structure, left thigh; M85.851 Other specified disorders of bone density and structure, right thigh
CPT/HCPCS: 77080

== ENCOUNTER 2025-01-15 12:57 | Outpatient (CLI) | payer OTHER, SELFPAY ==
--- OUTSIDE RECORDS SUMMARY | 2025-01-15 18:49 | XMS_ITS | Clinical Summary ---
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 Gender Identity Not on file Sexual Orientation Not on file Plan of Treatment Health Maintenance Due Date Last Done Comments Hepatitis C Virus (HCV) Screening 1965 TdaP Immunization 1965 Varicella Immunization (1 of 2 - 13+ 2-dose series) 1978 Hepatitis B Immunization (1 of 3 - 19+ 3-dose series) 02/26/1984 Pap Smear 1986 Cervical Cancer Screening (CCS) 1995 HPV/Cotest 1995 Cologuard 2010 Immunochemical Fecal Occult Blood 2010 Pneumococcal Immunization (5 0+ years) (1 of 1 - PCV) 2015 Zoster Immunization (1 of 2) 2015 Influenza Immunization (#1) 2024 SARS-COV-2 Immunization (3 - season) 2024 10/12/2020, 09/21/2020 Colonoscopy 04/21/2026 [...] Recently Relevant to Health Maintenance Care Teams Vrt Mechanic Relationship Specialty Start Date End Date Андрей Porfirio [address] [place] [address] PCP - General Family Medicine 01/19/16 Rosa Guevara MD [address] [place] [phone] Obstetrics & Gynecology 01/19/16 Shaka Davalos DO [address] [place] [address] Gastroenterology 04/27/16
== END 2025-01-15 12:58 | disposition home or self-care (01) ==
LOC: ANHLAB 12:59
PROVIDERS: Visit Provider Obstetrics & Gynecology Gynecology
DX: M85.88 Other specified disorders of bone density and structure, other site (principal)
CPT/HCPCS: 36415; 82306